=== PATIENT | male | born 1975 | race Two or more races ===

== ENCOUNTER 2018-05-06 21:49 | Emergency (ER) | payer OTHER ==
[~2018-05-06] VITALS: Ht 177.8 cm; Wt 115.2 kg
[2018-05-06 21:57] VITALS: BP 154/99
[2018-05-06] MEDS ORDERED: CEPH-264 PO (22:04)
[2018-05-06] MEDS: CEPHALEXIN 250 MG CAPSULE PO ONE (22:09)
--- NOTE | 2018-05-07 06:04 | ED.ADGEN ---
Past History Past Medical History: No Pertinent History Past Surgical History: Other Alcohol Use: None Drug Use: None Adult General Chief Complaint Chief Complaint Left wrist injury HPI HPI Patient is a 30-year-old right-handed male who presents with laceration/ puncture wound to left distal ulnar artery. Patient states he was cutting wire which is sliced into left wrist. Reports pulsatile bleeding which resolved with pressure dressing. Injury occurred 45 minutes prior to ED arrival. After dressing left arm, patient continued to work. No bleeding on ED arrival. Sensation, motor function and pulses intact distal left upper extremity. Tetanus is up-to-date. On exam, there is a punctate wound overlying ulnar artery. There is no palpable hematoma. Wound is clean, wound is well approximated [] Review of Systems Review of Systems ROS as per HPI All other systems were reviewed and found to be within normal limits, except as documented in this note. Current Medications Current Medications Current Medications Medications (Trade) Dose Ordered Sig/Meena Start Time Stop Time Status Last Admin Dose Admin Cephalexin HCl (Keflex) 500 mg 1X ONCE 05/06/18 22:15 05/06/18 22:16 DC 05/06/18 22:09 500 MG Allergies Allergies Allergies Coded Allergies Type Severity Reaction Last Updated Verified No Known Allergies Allergy Unknown 05/06/18 Yes Physical Exam Physical Exam Constitutional: Well developed, well nourished, no acute distress, non-toxic appearance. [] Extremities: Left upper extremity, punctate wound over distal left flexor wrist overlying distal ulnar artery, wound is clean, bleeding controlled, wound edges approximately [] Current Patient Data Vital Signs Vital Signs Date Time Temp Pulse Resp B/P (MAP) Pulse Ox O2 Delivery O2 Flow Rate FiO2 05/06/18 21:57 98.6 103 20 97 Room Air EKG EKG [] Radiology/Procedures Radiology/Procedures [] Course & Med Decision Making Course & Med Decision Making Pertinent Labs and Imaging studies reviewed. (See chart for details) [Wound cleaned and redressed with pressure dressing. Abx given] Final Impression Final Impression [1. Left wrist laceration] Dragon Disclaimer Dragon Disclaimer This electronic medical record was generated, in whole or in part, using a voice recognition dictation system. LIBRADO KEY DO May 07, 2018 06:04
== END 2018-05-06 22:20 | disposition home or self-care (01) ==
LOC: ER 21:49
DX: S61.512A Laceration without foreign body of left wrist, initial encounter (principal); W26.8XXA Contact with other sharp object(s), not elsewhere classified, initial encounter; Y93.89 Activity, other specified; Y92.89 Other specified places as the place of occurrence of the external cause; Y99.8 Other external cause status
CPT/HCPCS: 99283